=== PATIENT | female | born 1935 | race African-American/Black ===

== ENCOUNTER 2017-03-05 11:39 | Observation (INO) | payer OTHER ==
[2017-03-05 11:55] VITALS: BMI 32.5
[2017-03-05] MEDS ORDERED: ASPIRIN 81 MG CHEWABLE TABLETS PO ONE (12:08)
[2017-03-05] MEDS ORDERED: ALBUTEROL SO4 2.5/IPRATROPIUM 0.5 INH SOL 3 ML VIAL.NEB. NEB ONE ×2 (12:08→12:18)
[2017-03-05] MEDS ORDERED: ASPIRIN 81 MG CHEWABLE TABLETS ONE (12:18)
--- NOTE | 2017-03-05 12:22 | PDOC ---
History of Present Illness - History of Present Illness Initial Comments: 03/05/17 12:34 Patient is a 81 year old female with a significant past medical history of hypothyroidism, Kidney Disease, who presents to the ED with complaints of chest pain that began wednesday afternoon. Patient reports going to [facility] for chest pain that began wednesday afternoon. Patient does not rate intensity of chest pain but states it was intense . Patient reports calling PCP who referred her to the ED for further evaluation. She reports having shingles on chest that her PCP stated was no longer active and was beginning to heal. Denies SOB. Denies nausea, vomiting. Denies fever, chills. Denies contact with sick individuals, out of state travel. Denies any other symptoms. Allergies: None Social history: No smoking. Social drinking. No illicit drugs. Surgical history PMD: None <Jovany Cornejo - Last Filed: 03/05/17 12:34> - General History Source: Patient Exam Limitations: No Limitations <Monse Seay - Last Filed: 03/05/17 16:28> - General Chief Complaint: Chest Pain Stated Complaint: Chest pain Past History <Jovany Cornejo - Last Filed: 03/05/17 12:34> - Past Medical History COPD: No Disorders: Yes (KIDNEY DISEASE) HTN: Yes Thyroid Disease: Yes Other medical history: [place] - Immunization History Immunization Up to Date: Yes - Suicide/Smoking/Psychosocial Hx Smoking History: Never smoked Have you smoked in the past 12 months: No Information on smoking cessation initiated: No Hx Alcohol Use: No Drug/Substance Use Hx: No Substance Use Type: Alcohol <Monse Seay - Last Filed: 03/05/17 16:28> - Past Medical History Allergies/Adverse Reactions: Allergies Allergy/AdvReac Type Severity Reaction Status Date / Time No Known Allergies Allergy Verified 03/05/17 11:55 Home Medications: Ambulatory Orders Levothyroxine [Synthroid -] 112 mcg PO DAILY 05/07/14 Gabapentin 100 mg PO BID 11/03/15 Review of Systems - Review of Systems Able to Perform ROS?: Yes Comments:: 03/05/17 12:34 GENERAL/CONSTITUTIONAL: No fever or chills. No weakness. HEAD, EYES, EARS, NOSE AND THROAT: No change in vision. No ear pain or discharge. No sore throat. GASTROINTESTINAL: No nausea, vomiting, diarrhea or constipation. GENITOURINARY: No dysuria, frequency, or change in urination. CARDIOVASCULAR: +Chest pain. No shortness of breath. RESPIRATORY: No cough, wheezing, or hemoptysis. MUSCULOSKELETAL: No joint or muscle swelling or pain. No neck or back pain. SKIN: No rash NEUROLOGIC: No headache, vertigo, loss of consciousness, or change in strength/ sensation. ENDOCRINE: No increased thirst. No abnormal weight change. HEMATOLOGIC/LYMPHATIC: No anemia, easy bleeding, or history of blood clots. ALLERGIC/IMMUNOLOGIC: No hives or skin allergy. All Other Systems: Reviewed and Negative <Joavny Cornejo - Last Filed: 03/05/17 12:34> *Physical Exam - Vital Signs Last Vital Signs Temp Pulse Resp BP Pulse Ox 97.8 F 86 18 194/91 86 L 03/05/17 11:51 03/05/17 11:51 03/05/17 11:51 03/05/17 11:51 03/05/17 11:51 - Physical Exam Comments: 03/05/17 12:35 GENERAL: Awake, alert, and fully oriented, in no acute distress HEAD: No signs of trauma EYES: PERRLA, EOMI, sclera anicteric, conjunctiva clear ENT: Auricles normal inspection, nares patent, Moist mucosa NECK: Normal ROM, supple, no lymphadenopathy, JVD, or masses LUNGS: +Feint respiratory wheeze in right base. Breath sounds equal, clear to auscultation bilaterally. No wheezes, and no crackles HEART: Regular rate and rhythm, normal S1 and S2, no murmurs, rubs or gallops ABDOMEN: Soft, nontender, normoactive bowel sounds. No guarding, no rebound. No masses EXTREMITIES: Warm well profused. Normal range of motion, no edema. No clubbing or cyanosis. No cords, erythema, or tenderness NEUROLOGICAL: Normal speech SKIN: No active rash Warm, Dry, normal turgor, lesions noted. <Jovany Cornejo - Last Filed: 03/05/17 12:34> - Vital Signs Last Vital Signs Temp Pulse Resp BP Pulse Ox 97.8 F 86 18 194/91 86 L 03/05/17 11:51 03/05/17 11:51 03/05/17 11:51 03/05/17 11:51 03/05/17 11:51 <Monse Seay - Last Filed: 03/05/17 16:28> Heart Score/ECG Review #1 General ECG Interpretation: Sinus Rhythm, Normal Rate (57 sinus bradycardia), Normal Intervals, No acute ischemic changes Compared to previous ECG there are: Previous ECG unavail <Monse Seay - Last Filed: 03/05/17 16:28> ED Treatment Course - LABORATORY CBC & Chemistry Diagram: 03/05/17 12:12 03/05/17 12:12 - RADIOLOGY Radiology Studies Ordered: Category Date Time Status CHEST PA & LAT [RAD] Stat Radiology 03/05/17 12:09 Ordered <Monse Seay - Last Filed: 03/05/17 16:28> Medical Decision Making - Medical Decision Making 03/05/17 12:19 81-year-old female with a history of hypertension here with complaining of chest pain patient states she was recently diagnosed with shingles several weeks ago and has had persistent chest pain ever since denies any fevers chills cough denies shortness of breath today the pain woke her out of her sleep and prompt her to come to the ER. She called her primary doctor who instructed her to come to the ED. No leg swelling no other current complaints On exam awake alert female wheezing at the right base otherwise clear lungs normal effort cardiac exam is unremarkable. Abdomen soft nontender. Extremities warm well perfused no edema. Neuro alert and oriented 3 patient is very hard of hearing Differential includes ACS, post shingles neurolgia. Pneumonia, bronchospasm,. Patient states she recently had a CT chest will discuss with her primary care doctor meantime aspirin, DuoNeb, labs including troponin 03/05/17 15:43 pcp Nessa cheema [phone] pgd. 03/05/17 15:46 <Monse Seay - Last Filed: 03/05/17 16:28> *DC/Admit/Observation/Transfer - Attestations Scribe Attestion: 03/05/17 12:35 Documentation prepared by Jovany Cornejo, acting as biomedical equipment tech for Monse Seay MD, /DO. <Jovany Cornejo - Last Filed: 03/05/17 12:34> - Discharge Dispostion Admit: Yes <Monse Seay - Last Filed: 03/05/17 16:28> Diagnosis at time of Disposition: Chest pain
[2017-03-05 12:44] LABS: MCH 28.4 pg (25.7-33.7); MCHC 32.1 g/dl (32.0-36.0); MEAN CELL VOLUME 88.6 fl (80-96); MEAN PLT VOLUME 8.1 fl (7.5-11.1); PLATELET COUNT 203 K/MM3 (134-434); RDW 14.7 % (11.6-15.6)
[2017-03-05 13:20] LABS: ALBUMIN 3.5 g/dl (3.4-5.0); ANION GAP 7 (8-16); BILIRUBIN,TOTAL 0.3 mg/dL (0.2-1.0); CO2 29 mmol/L (21-32); CREATININE 1.4 mg/dL (0.55-1.02); GLUCOSE,RANDOM 92 mg/dL (74-106); SGPT/ALT 11 U/L (12-78)
[2017-03-05 13:23] LABS: ALK PHOS 45 U/L (45-117)
[2017-03-05 13:24] LABS: CPK 120 IU/L (26-192); TROPONIN I < 0.02 ng/ml (0.00-0.05)
[2017-03-05 13:28] LABS: SGOT/AST 19 U/L (15-37)
--- NOTE | 2017-03-05 18:05 | HP ---
CHIEF COMPLAINT: sternal pain and burning sensation PCP: Nessa Mcmahan HISTORY OF PRESENT ILLNESS: This is an 81 year old female who is VERY hard of hearing with PMHx of hypothyroidism, hyperlipidemia, back pain, diverticulosis, shingles (12/2016) who presented to the ED with sternal chest pain and burning sensation. The patient was seen by her primary care physician on 02/22 with the same complaints and was diagnosed with post herpatic neuralgia. She is a bad historian. She is not able to say when the pain started, if it radiates, if it is constant or intermittent. The patient denies any shortness of breath, chest pressure, palpitations, dizziness, nausea, vomiting, diarrhea, headache, lower extremity edema. ER course was notable for: (1) Temp 97.8, pulse 86, BP 194/91, resp 18, O2 100% on RA (2) Cr 1.4 (3) Trop negative (4) Chest X-ray with large heart, unfolded aorta, prominent milton. Sharp angles Recent Travel: denies PAST MEDICAL HISTORY: as above PAST SURGICAL HISTORY: denies Social History: Smoking: denies Alcohol: denies Drugs: denies Family History: Allergies No Known Allergies Allergy (Verified 03/05/17 11:55) HOME MEDICATIONS: Home Medications Medication Instructions Recorded Levothyroxine [Synthroid -] 112 mcg PO DAILY 05/07/14 Gabapentin 100 mg PO BID 11/03/15 REVIEW OF SYSTEMS CONSTITUTIONAL: Absent: fever, chills, diaphoresis, generalized weakness HEENT: Absent: rhinorrhea, nasal congestion, throat pain, CARDIOVASCULAR: Post singles sternal chest pain for which she was seen at her primary care office on 02/22. Absent: syncope, palpitations, irregular heart rate , lightheadedness, peripheral edema RESPIRATORY: Absent: cough, shortness of breath, dyspnea with exertion, orthopnea, wheezing, stridor, hemoptysis GASTROINTESTINAL:Absent: abdominal pain, abdominal distension, nausea, vomiting , diarrhea, constipation, melena, hematochezia GENITOURINARY: Absent: dysuria, frequency, urgency, hesitancy, hematuria, flank pain, genital pain MUSCULOSKELETAL: Absent: myalgia, arthralgia, joint swelling, back pain, neck pain SKIN: Absent: rash, itching, pallor ENDOCRINE:Absent: unexplained weight gain, unexplained weight loss, heat intolerance, cold intolerance NEUROLOGIC: Absent: headache, focal weakness or paresthesias, dizziness, unsteady gait, seizure, mental status changes, bladder or bowel incontinence PSYCHIATRIC: Absent: anxiety, depression, suicidal or homicidal ideation, hallucinations. PHYSICAL EXAMINATION Vital Signs - 24 hr 03/05/17 03/05/17 03/05/17 11:51 13:30 17:36 Temperature 97.8 F Pulse Rate 86 Pulse Rate [ 59 L Radial] Respiratory 18 20 Rate Blood Pressure 194/91 Blood Pressure 187/98 [Left Arm] O2 Sat by Pulse 86 L 96 100 Oximetry (%) GENERAL: Awake, alert, and fully oriented, in no acute distress. Hard of hearing HEAD: Normal with no signs of trauma. EYES: Pupils equal, round and reactive to light, extraocular movements intact, sclera anicteric, conjunctiva clear. No lid lag. EARS, NOSE, THROAT: Ears normal, nares patent, oropharynx clear without exudates. Moist mucous membranes. NECK: Normal range of motion LUNGS: Breath sounds equal, clear to auscultation bilaterally. No wheezes, and no crackles. No accessory muscle use. HEART: Regular rate and rhythm, normal S1 and S2 ABDOMEN: Soft, nontender, not distended, normoactive bowel sounds MUSCULOSKELETAL: Normal range of motion at all joints. No bony deformities or tenderness. No CVA tenderness. UPPER EXTREMITIES: 2+ pulses, warm, well-perfused. No cyanosis. No clubbing. No peripheral edema. LOWER EXTREMITIES: 2+ pulses, warm, well-perfused. No calf tenderness. No peripheral edema. NEUROLOGICAL: Cranial nerves II-XII intact. Normal speech. Gait not observed PSYCHIATRIC: Cooperative. Good eye contact. Appropriate mood and affect. SKIN: Warm, dry, normal turgor, no rashes or lesions noted, normal capillary refill. Laboratory Results - last 24 hr 03/05/17 03/05/17 03/05/17 12:12 12:12 12:12 WBC 4.0 RBC 3.88 Hgb 11.0 Hct 34.4 MCV 88.6 MCH 28.4 MCHC 32.1 RDW 14.7 Plt Count 203 MPV 8.1 Neutrophils % 54.0 Lymphocytes % 33.6 Monocytes % 9.4 Eosinophils % 2.0 Basophils % 1.0 Sodium 141 Potassium 3.8 Chloride 105 Carbon Dioxide 29 Anion Gap 7 L BUN 17 Creatinine 1.4 H D Creat Clearance w eGFR 36.00 Random Glucose 92 Calcium 9.0 Total Bilirubin 0.3 D AST 19 ALT 11 L D Alkaline Phosphatase 45 Creatine Kinase 120 Cancelled Troponin I < 0.02 Cancelled B-Natriuretic Peptide 399.88 Total Protein 7.0 Albumin 3.5 Assessment: This is an 81 year old female who is VERY hard of hearing with PMHx of hypothyroidism, hyperlipidemia, back pain, diverticulosis, shingles (12/2016 ) who presented to the ED with sternal chest pain and burning sensation. Plan: 1) Atypical chest pain - ACS vs. GERD vs. post herpatic neuralgia s/p shingles 12/2016 - F/u repeat trops, x1 negative - Enlarged heart on chest x-ray, BNP wnl - F/u ECHO - F/u TSH - F/u lipid panel - F/u HgbA1c - Zantac 150mg bid for GERD - Post herpatic neuralgia diagnosed 02/22/17 by pcp. Ideally would like to start on tricyclic antidepressant, however with the patients advanced age would be concerned for anticolinergic effects. Will start Gabapentin 300mg today, then bid tomorrow. Assess for improvement in symptoms and increase as needed 2) Hypertension - Above goal - Start Norvasc 5mg po daily 3) Hypothyroidism - Continue Synthroid 4) ONESIMO on CKD vs. CKD - No baseline Cr - Continue to monitor - If worsening consider renal ultrasound and urine electrolytes 4) F/E/N: - Sodium controlled diet - Monitor electrolytes 5) Prophylaxis: - OOB ambulating - SCDs bilaterally 6) Dispo: - Once condition improves CODE STATUS: FULL CODE Visit type - Emergency Visit Emergency Visit: Yes ED Registration Date: 03/05/17 Care time: The patient presented to the Emergency Department on the above date and was hospitalized for further evaluation of their emergent condition. - New Patient This patient is new to me today: Yes Date on this admission: 03/05/17 - Critical Care Critical Care patient: No
[2017-03-05] MEDS ORDERED: RANITIDINE HCL 150 MG TABLET (FP) ONE (18:24)
[2017-03-05] MEDS ORDERED: amLODIPine BESYLATE 5 MG TABLET (FP) ONE (18:24)
[2017-03-05] MEDS ORDERED: GABAPENTIN 300 MG CAPSULE (FP) PO ONE ×2 (18:25→21:45)
[2017-03-05] MEDS: amLODIPine BESYLATE 5 MG TABLET (FP) PO SCH (18:35)
[2017-03-05 18:37] LABS: CPK 95 IU/L (26-192); TROPONIN I < 0.02 ng/ml (0.00-0.05)
[2017-03-05] MEDS: RANITIDINE HCL 150 MG TABLET (FP) PO SCH ×2 (18:40→21:45)
[2017-03-05] MEDS ORDERED: GABAPENTIN 300 MG CAPSULE (FP) PO SCH (22:00)
[2017-03-06 01:17] LABS: CPK 83 IU/L (26-192); TROPONIN I < 0.02 ng/ml (0.00-0.05)
[2017-03-06 06:34] LABS: MCH 29.3 pg (25.7-33.7); MCHC 32.7 g/dl (32.0-36.0); MEAN CELL VOLUME 89.6 fl (80-96); MEAN PLT VOLUME 8.5 fl (7.5-11.1); PLATELET COUNT 199 K/MM3 (134-434); RDW 15.2 % (11.6-15.6); WHITE BLOOD COUNT 3.6 K/mm3 (4.0-10.0)
[2017-03-06 07:08] LABS: CHOLESTEROL 220 mg/dL (50-200)
[2017-03-06 07:09] LABS: ALBUMIN 3.2 g/dl (3.4-5.0); ANION GAP 9 (8-16); BILIRUBIN,TOTAL 0.5 mg/dL (0.2-1.0); CALCIUM 8.5 mg/dL (8.5-10.1); CO2 26 mmol/L (21-32); CREATININE 1.3 mg/dL (0.55-1.02); GLUCOSE,RANDOM 79 mg/dL (74-106); MAGNESIUM 1.9 mg/dL (1.8-2.4); PHOSPHOROUS 3.2 mg/dL (2.5-4.9); SGOT/AST 15 U/L (15-37); SGPT/ALT 10 U/L (12-78); TOT PROT 6.4 g/dl (6.4-8.2)
[2017-03-06 07:19] LABS: ALK PHOS 44 U/L (45-117)
[2017-03-06] MEDS: amLODIPine BESYLATE 5 MG TABLET (FP) PO SCH (09:22)
[2017-03-06] MEDS: RANITIDINE HCL 150 MG TABLET (FP) PO SCH (09:22)
[2017-03-06] MEDS ORDERED: LEVOTHYROXINE NA 100 MCG TABLET (FP) PO SCH (10:00)
[2017-03-06] MEDS ORDERED: OXYBUTYNIN CHLORIDE 5 MG TABLET PO SCH (10:00)
[2017-03-06] MEDS ORDERED: ASPIRIN COATED 81 MG TABLET.EC PO SCH (10:00)
[2017-03-06] MEDS ORDERED: GABAPENTIN 300 MG CAPSULE (FP) PO SCH (10:00)
[2017-03-06 11:31] VITALS: BP 172/69; PULSE 58; TEMP 98
--- NOTE | 2017-03-06 12:45 | DS ---
Physical Exam: SUBJECTIVE: Patient seen and examined OBJECTIVE: Vital Signs Period Temp Pulse Resp BP Sys/Munoz Pulse Ox Last 24 Hr 97.8 F-98.6 F 55-63 18-22 153-187/68-98 96-100 PHYSICAL EXAM GENERAL: The patient is awake, alert, and fully oriented, in no acute distress. HEAD: Normal with no signs of trauma. EYES: PERRL, extraocular movements intact, sclera anicteric, conjunctiva clear. ENT: Ears normal, nares patent, oropharynx clear without exudates, moist mucous membranes. NECK: Trachea midline, full range of motion, supple. LUNGS: Breath sounds equal, clear to auscultation bilaterally, no wheezes, no crackles, no accessory muscle use. HEART: Regular rate and rhythm, S1, S2 without murmur, rub or gallop. ABDOMEN: Soft, nontender, nondistended, normoactive bowel sounds, no guarding, no rebound, no hepatosplenomegaly, no masses. EXTREMITIES: 2+ pulses, warm, well-perfused, no edema. NEUROLOGICAL: Cranial nerves II through XII grossly intact. Normal speech, gait not observed. PSYCH: Normal mood, normal affect. SKIN: Warm, dry, normal turgor, no rashes or lesions noted. LABS Laboratory Results - last 24 hr 03/05/17 03/05/17 03/05/17 12:12 12:12 12:12 WBC 4.0 RBC 3.88 Hgb 11.0 Hct 34.4 MCV 88.6 MCH 28.4 MCHC 32.1 RDW 14.7 Plt Count 203 MPV 8.1 Neutrophils % 54.0 Lymphocytes % 33.6 Monocytes % 9.4 Eosinophils % 2.0 Basophils % 1.0 Sodium 141 Potassium 3.8 Chloride 105 Carbon Dioxide 29 Anion Gap 7 L BUN 17 Creatinine 1.4 H D Creat Clearance w eGFR 36.00 Random Glucose 92 Hemoglobin A1c % Calcium 9.0 Phosphorus Magnesium Total Bilirubin 0.3 D AST 19 ALT 11 L D Alkaline Phosphatase 45 Creatine Kinase 120 Cancelled Troponin I < 0.02 Cancelled B-Natriuretic Peptide 399.88 Total Protein 7.0 Albumin 3.5 Triglycerides Cholesterol Total LDL Cholesterol HDL Cholesterol TSH 03/05/17 03/06/17 03/06/17 18:00 00:00 05:00 WBC 3.6 L RBC 3.68 Hgb 10.8 Hct 33.0 MCV 89.6 MCH 29.3 MCHC 32.7 RDW 15.2 Plt Count 199 MPV 8.5 Neutrophils % Lymphocytes % Monocytes % Eosinophils % Basophils % Sodium Potassium Chloride Carbon Dioxide Anion Gap BUN Creatinine Creat Clearance w eGFR Random Glucose Hemoglobin A1c % Calcium Phosphorus Magnesium Total Bilirubin AST ALT Alkaline Phosphatase Creatine Kinase 95 83 Troponin I < 0.02 < 0.02 B-Natriuretic Peptide Total Protein Albumin Triglycerides Cholesterol Total LDL Cholesterol HDL Cholesterol TSH 03/06/17 03/06/17 03/06/17 05:00 05:00 05:00 WBC RBC Hgb Hct MCV MCH MCHC RDW Plt Count MPV Neutrophils % Lymphocytes % Monocytes % Eosinophils % Basophils % Sodium 141 Potassium 3.9 Chloride 106 Carbon Dioxide 26 Anion Gap 9 BUN 16 Creatinine 1.3 H Creat Clearance w eGFR 39.21 Random Glucose 79 Hemoglobin A1c % 5.0 Calcium 8.5 Phosphorus 3.2 Magnesium 1.9 Total Bilirubin 0.5 D AST 15 D ALT 10 L Alkaline Phosphatase 44 L Creatine Kinase Troponin I B-Natriuretic Peptide Total Protein 6.4 Albumin 3.2 L Triglycerides 60 Cholesterol 220 H Total LDL Cholesterol 135 H HDL Cholesterol 74 H TSH 24.90 H HOSPITAL COURSE: Date of Admission:03/05/17 Date of Discharge: 03/06/17 Minutes to complete discharge: 35 Discharge Summary Reason For Visit: CHEST PAIN Current Active Problems Chest pain (Acute) Condition: Improved - Instructions Diet, Activity, Other Instructions: It is important you see Dr. Bang for your scheduled appoinment on Wednesday. You were seen at [facility] for an exacerbation of your post-herpetic neuralgia. The following medication changes were made: 1. Your dose of gabapentin was increased from 100 mg twice daily to 300mg twice daily; a new prescription has been sent to your pharmacy; 2. Your blood pressure was elevated during your hospital stay (163-->194/78-->91 ); you were started on amlodipine 5mg daily; a new prescription has been sent to your pharmacy; 3. Your TSH level was high @ 24.9; your dose of levothyroxine was increased to 112mcg daily; a new prescription has been sent to your pharmacy. You should discuss these medication changes with Dr. Bang. Return to the emergency department for any new or worsening symptoms. Referrals: Nessa Waters [Non Staff, Medical] - Disposition: HOME - Home Medications Comprehensive Discharge Medication List: Ambulatory Orders Amlodipine Besylate [Norvasc -] 5 mg PO DAILY #30 tablet 03/06/17 Gabapentin [Neurontin -] 300 mg PO BID #60 capsule 03/06/17 Levothyroxine [Synthroid -] 112 mcg PO DAILY #30 tablet 03/06/17 This patient is new to me today: Yes Date on this admission: 03/06/17 Emergency Visit: Yes ED Registration Date: 03/05/17 Care time: The patient presented to the Emergency Department on the above date and was hospitalized for further evaluation of their emergent condition. Critical Care patient: No
== END 2017-03-06 15:38 | disposition home or self-care (01) ==
LOC: JER 11:39 → JERBED 16:28 → J4W 19:10
PROVIDERS: ADMIT Internal Medicine; ATTEND Nurse Practitioner Acute Care
PROC: 3E0F7GC Introduction of Other Therapeutic Substance into Respiratory Tract, Via Natural or Artificial Opening (ICD-10-PCS; principal; 2017-03-05)
DX: R07.89 Other chest pain (principal); E03.9 Hypothyroidism, unspecified; E78.5 Hyperlipidemia, unspecified; N17.9 Acute kidney failure, unspecified
CPT/HCPCS: 36415; 71020-TC; 80053; 80061; 82550; 83036; 83721; 83735; 83880; 84100; 84443; 84484; 85025; 85027; 94640; 99284-25; G0378

== ENCOUNTER 2017-05-31 21:19 | Emergency (ER) | payer OTHER ==
--- NOTE | 2017-05-31 21:53 | PDOC ---
Rapid Medical Evaluation Time Seen by Provider: 05/31/17 21:46 Medical Evaluation: Allergies Allergy/AdvReac Type Severity Reaction Status Date / Time No Known Allergies Allergy Verified 03/05/17 11:55 05/31/17 21:46 The patient presents with a chief complaint of: " Not feeling well" Cough and fever. Was seen at urgent care on Wednesday chest xray showed pneumonia. Was started on antibiotics. I have performed a brief in-person evaluation of this patient. Pertinent physical exam findings: Crackles bilaterally more on the left then the right. RRR I have ordered the following: Chest Xray The patient will proceed to the ED for further evaluation. Discharge Disposition - Diagnosis Pneumonia - Referrals - Patient Instructions - Post Discharge Activity
[2017-05-31 21:56] VITALS: BP 160/72; PULSE 64; TEMP 98.3; BMI 32.5
[2017-05-31] MEDS ORDERED: SODIUM CHLORIDE 1,000 ML IV STA (22:00)
--- NOTE | 2017-05-31 22:45 | PDOC ---
History of Present Illness - General History Source: Patient Exam Limitations: No Limitations - History of Present Illness Initial Comments: 06/01/17 02:16 The patient is an 82 year old female with history of hypertension, hyperthyroidism, who presents to the ED complaining of approximately 1 week of cough. She states she was seen at Urgent Care two days ago, where she obtained a chest x-ray that demonstrated pneumonia. She was prescribed an antibiotic, which she can not recall the name of. She states she took two days of a 7 day course, but is concerned that her cough has not yet resolved, prompting her ED visit today. Cough is productive with yellowish sputum. She also reports associated intermittent chills, no fever. No nausea, vomiting, or diarrhea. No wheezing or hemoptysis. Denies CP/SOB <Natacha Martins - Last Filed: 06/01/17 02:16> <Jennifer Walton - Last Filed: 06/01/17 02:37> - General Chief Complaint: Shortness of Breath Stated Complaint: FEVER Time Seen by Provider: 05/31/17 21:46 Past History <Natacha Martins - Last Filed: 06/01/17 02:16> - Past Medical History Anemia: No Asthma: No Cancer: No Cardiac Disorders: No CVA: No COPD: No CHF: No Dementia: No Diabetes: No GI Disorders: No Disorders: Yes (KIDNEY DISEASE) HTN: Yes Hypercholesterolemia: Yes Liver Disease: No Seizures: No Thyroid Disease: Yes - Surgical History Abdominal Surgery: No Appendectomy: No Cardiac Surgery: No Cholecystectomy: No Lung Surgery: No Neurologic Surgery: No Orthopedic Surgery: Yes (BILAT ROTATOR SX; (R) WRIST SX) - Immunization History Immunization Up to Date: Yes - Suicide/Smoking/Psychosocial Hx Smoking History: Never smoked Have you smoked in the past 12 months: No Information on smoking cessation initiated: No Hx Alcohol Use: No Drug/Substance Use Hx: No Substance Use Type: Alcohol Hx Substance Use Treatment: No <Jennifer Walton - Last Filed: 06/01/17 02:37> - Past Medical History Allergies/Adverse Reactions: Allergies Allergy/AdvReac Type Severity Reaction Status Date / Time No Known Allergies Allergy Verified 05/31/17 21:56 Home Medications: Ambulatory Orders Amlodipine Besylate [Norvasc -] 5 mg PO DAILY #30 tablet 03/06/17 Gabapentin [Neurontin -] 300 mg PO BID #60 capsule 03/06/17 Levothyroxine [Synthroid -] 112 mcg PO DAILY #30 tablet 03/06/17 Review of Systems - Review of Systems Able to Perform ROS?: Yes Comments:: 06/01/17 02:17 GENERAL/CONSTITUTIONAL: +Chills, no fever. No weakness. HEAD, EYES, EARS, NOSE AND THROAT: No change in vision. No ear pain or discharge. No sore throat. GASTROINTESTINAL: No nausea, vomiting, diarrhea or constipation. GENITOURINARY: No dysuria, frequency, or change in urination. CARDIOVASCULAR: No chest pain or shortness of breath. RESPIRATORY: +Productive cough with yellow sputum. No wheezing, or hemoptysis. MUSCULOSKELETAL: No joint or muscle swelling or pain. No neck or back pain. SKIN: No rash NEUROLOGIC: No headache, vertigo, loss of consciousness, or change in strength/ sensation. ENDOCRINE: No increased thirst. No abnormal weight change. HEMATOLOGIC/LYMPHATIC: No anemia, easy bleeding, or history of blood clots. ALLERGIC/IMMUNOLOGIC: No hives or skin allergy. <Natacha Martins - Last Filed: 06/01/17 02:16> *Physical Exam - Vital Signs Last Vital Signs Temp Pulse Resp BP Pulse Ox 98.3 F 64 20 160/72 100 05/31/17 21:48 05/31/17 21:48 05/31/17 21:48 05/31/17 21:48 05/31/17 22:00 - Physical Exam Comments: 06/01/17 02:17 GENERAL: Awake, alert, and fully oriented, in no acute distress HEAD: No signs of trauma EYES: PERRLA, EOMI, sclera anicteric, conjunctiva clear ENT: Auricles normal inspection, hearing grossly normal, nares patent, oropharynx clear without exudates. Moist mucosa NECK: Normal ROM, supple, no lymphadenopathy, JVD, or masses LUNGS: CTAB, no wheezes, rhonchi or crackles HEART: Regular rate and rhythm, normal S1 and S2. +2/6 systolic ejection murmur loudest at the right sternal border. ABDOMEN: Soft, nontender, normoactive bowel sounds. No guarding, no rebound. No masses EXTREMITIES: Normal range of motion, no edema. No clubbing or cyanosis. No cords, erythema, or tenderness BACK: No midline spinal tenderness in cervical/thoracic/lumbar region NEUROLOGICAL: Normal speech, cranial nerves intact, negative pronator drift, 5/ 5 strength in all 4 extremities, normal sensation to light touch in all 4 extremities, normal cerebellar exam, normal reflexes and tone. Cane assisted ambulation. SKIN: Warm, Dry, normal turgor, no rashes or lesions noted. <Natacha Martins - Last Filed: 06/01/17 02:16> - Vital Signs Last Vital Signs Temp Pulse Resp BP Pulse Ox 98.3 F 64 20 160/72 100 05/31/17 21:48 05/31/17 21:48 05/31/17 21:48 05/31/17 21:48 05/31/17 22:00 <Jennifer Walton - Last Filed: 06/01/17 02:37> ED Treatment Course - LABORATORY CBC & Chemistry Diagram: 05/31/17 23:00 05/31/17 23:00 - ADDITIONAL ORDERS Additional order review: Laboratory Results 06/01/17 05/31/17 05/31/17 00:20 23:31 23:00 PT with INR INR PTT (Actin FS) Sodium Potassium Chloride Carbon Dioxide Anion Gap BUN Creatinine Creat Clearance w eGFR Random Glucose Lactic Acid 0.7 Calcium Total Bilirubin AST ALT Alkaline Phosphatase Creatine Kinase Creatine Kinase Index CK-MB (CK-2) Troponin I Total Protein Albumin Urine Color Colorless Urine Appearance Clear Urine pH 7.0 Ur Specific [place] 1.003 Urine Protein Negative Urine Glucose (UA) Negative Urine Ketones Negative Urine Blood Negative Urine Nitrite Negative Urine Bilirubin Negative Urine Urobilinogen Negative Ur Leukocyte Esterase Negative Blood Type Cancelled Antibody Screen Cancelled 05/31/17 05/31/17 05/31/17 23:00 23:00 23:00 PT with INR Cancelled INR Cancelled PTT (Actin FS) Cancelled Sodium 137 Potassium 4.9 Chloride 103 Carbon Dioxide 26 Anion Gap 8 BUN 19 H Creatinine 1.2 H Creat Clearance w eGFR 42.90 Random Glucose 85 Lactic Acid 0.5 Calcium 8.5 Total Bilirubin 0.4 AST 44 H ALT 17 Alkaline Phosphatase 44 L Creatine Kinase 154 Creatine Kinase Index 0.7 CK-MB (CK-2) 1.112 Troponin I < 0.02 Total Protein 7.5 Albumin 3.3 L Urine Color Urine Appearance Urine pH Ur Specific [place] Urine Protein Urine Glucose (UA) Urine Ketones Urine Blood Urine Nitrite Urine Bilirubin Urine Urobilinogen Ur Leukocyte Esterase Blood Type Antibody Screen 05/31/17 05/31/17 23:00 00:20 RBC Cancelled 3.82 MCV Cancelled 86.7 MCHC Cancelled 32.3 RDW Cancelled 14.0 MPV Cancelled 8.7 Neutrophils % Cancelled 33.0 L D Lymphocytes % Cancelled 51.5 H D Monocytes % Cancelled 12.9 H Eosinophils % Cancelled 2.0 Basophils % Cancelled 0.6 - Medications Given in the ED: ED Medications Discontinued Medications Generic Name Dose Route Start Last Admin Trade Name Freq PRN Reason Stop Dose Admin Sodium Chloride 1,000 mls @ 1,000 mls/hr 05/31/17 22:00 05/31/17 23:02 Normal Saline - IV 05/31/17 22:59 1,000 mls/hr ASDIR STA Administration <Natacha Martins - Last Filed: 06/01/17 02:16> - LABORATORY CBC & Chemistry Diagram: 05/31/17 23:00 05/31/17 23:00 <Jennifer Walton - Last Filed: 06/01/17 02:37> Medical Decision Making - Medical Decision Making 06/01/17 00:28 82-year-old female presents to emergency department with concern for pneumonia due to persistent cough. Initial vitals reported incorrectly with hypoxia to 86% . On the monitor, soon after arrival, the patient's O2 sat was 99% with good waveform on my evaluation. Patient is not in any distress, and exam is normal other than a 2/6 systolic murmur. Lungs are clear. We'll check labs and x-ray to rule out pneumonia. Patient likely has bronchitis, if labs and x-ray are normal, patient can likely be discharged to follow-up with her primary care doctor. 06/01/17 02:33 Labs and x-ray unremarkable. Patient feels well, is clinically stable and has stable vitals. Current O2 sat is 100% on room air. Pt is reassured she does not have PNA and requests discharge home. I discussed the physical exam findings, ancillary test results and final diagnoses with the patient. I answered all of the patient's questions. The patient was satisfied with the care received and felt comfortable with the discharge plan and treatment plan. The patient will call their primary care physician within 24 hours to arrange follow-up and will return to the Emergency Department with any new, persistent or worsening symptoms. <Jennifer Walton - Last Filed: 06/01/17 02:37> *DC/Admit/Observation/Transfer - Attestations Scribe Attestion: 06/01/17 02:17 Documentation prepared by Natacha Martins, acting as clinical medical transcriptionist for Jennifer Walton MD. <Natacha Martins - Last Filed: 06/01/17 02:16> - Discharge Dispostion Admit: No - Attestations Physician Attestion: 06/01/17 02:37 I, Dr. Jennifer Walton MD, attest that this document has been prepared under my direction and personally reviewed by me in its entirety. I further attest, that it accurately reflects all work, treatment, procedures and medical decision -making performed by me. <Jennifer Walton - Last Filed: 06/01/17 02:37> Diagnosis at time of Disposition: Bronchitis - Discharge Dispostion Disposition: HOME Condition at time of disposition: Stable - Patient Instructions Printed Discharge Instructions: DI for Acute Bronchitis Additional Instructions: Follow-up with her primary care doctor within 1-2 days. Return to the emergency department if you have any new, worsening or concerning symptoms.
[2017-05-31 23:30] LABS: ALBUMIN 3.3 g/dl (3.4-5.0); ANION GAP 8 (8-16); BLOOD UREA NITROGEN 19 mg/dL (7-18); CALCIUM 8.5 mg/dL (8.5-10.1); CHLORIDE 103 mmol/L (98-107); CO2 26 mmol/L (21-32); CREATININE 1.2 mg/dL (0.55-1.02); GLUCOSE,RANDOM 85 mg/dL (74-106); SGPT/ALT 17 U/L (12-78); SODIUM 137 mmol/L (136-145)
[2017-05-31 23:31] LABS: BILIRUBIN,TOTAL 0.4 mg/dL (0.2-1.0); TOT PROT 7.5 g/dl (6.4-8.2)
[2017-05-31 23:34] LABS: ALK PHOS 44 U/L (45-117)
[2017-05-31 23:36] LABS: POTASSIUM 4.9 mmol/L (3.5-5.1); SGOT/AST 44 U/L (15-37)
[2017-06-01 00:26] LABS: HEMOGLOBIN 10.7 GM/dL (10.7-15.3); LYMPH % 51.5 % (8-40); MCHC 32.3 g/dl (32.0-36.0); RBC 3.82 M/mm3 (3.60-5.2); WHITE BLOOD COUNT 2.8 K/mm3 (4.0-10.0)
[2017-06-01 00:28] LABS: BASO % 0.6 % (0-2.0); HEMATOCRIT 33.1 % (32.4-45.2); MEAN CELL VOLUME 86.7 fl (80-96); MEAN PLT VOLUME 8.7 fl (7.5-11.1); MONO % 12.9 % (3.8-10.2); PLATELET COUNT 159 K/MM3 (134-434)
[2017-06-01 00:54] LABS: URINE APPEARANCE CLEAR; URINE BILIRUBIN NEGATIVE (NEGATIVE); URINE BLOOD NEGATIVE (NEGATIVE); URINE COLOR COLORLESS; URINE GLUCOSE (UA) NEGATIVE (NEGATIVE); URINE KETONE NEGATIVE (NEGATIVE); URINE LEUK ESTERASE NEGATIVE (NEGATIVE); URINE NITRITE NEGATIVE (NEGATIVE); URINE PROTEIN NEGATIVE (NEGATIVE); URINE UROBILINOGEN NEGATIVE mg/dL (0.2-1.0)
--- NOTE | 2017-06-01 16:42 | EKG ---
Test Reason : Blood Pressure : / mmHG Vent. Rate : 059 BPM Atrial Rate : 059 BPM P-R Int : 168 ms QRS Dur : 088 ms QT Int : 412 ms P-R-T Axes : 057 030 042 degrees QTc Int : 407 ms SINUS BRADYCARDIA OTHERWISE NORMAL ECG WHEN COMPARED WITH ECG OF 05-MAR-2017 11:58, NO SIGNIFICANT CHANGE WAS FOUND Confirmed by MD Morris, Hermes ([id number]) on 06/01/2017 4:41:37 PM Referred By: Confirmed By:Hermes Caceres MD
== END 2017-06-01 03:21 | disposition home or self-care (01) ==
LOC: JER 21:19
PROC: 3E0337Z Introduction of Electrolytic and Water Balance Substance into Peripheral Vein, Percutaneous Approach (ICD-10-PCS; principal; 2017-05-31)
DX: J20.9 Acute bronchitis, unspecified (principal); I10 Essential (primary) hypertension; E05.90 Thyrotoxicosis, unspecified without thyrotoxic crisis or storm
CPT/HCPCS: 36415; 71046-TC-FY; 80053; 81003; 82550; 82553; 83605; 84484; 85025; 87040; 93005; 93010; 96360; 99283-25

== ENCOUNTER 2017-10-07 14:25 | Emergency (ER) | payer OTHER ==
[2017-10-07 14:54] VITALS: BMI 28.8
--- NOTE | 2017-10-07 16:15 | PDOC ---
History of Present Illness - General History Source: Patient Exam Limitations: No Limitations - History of Present Illness Initial Comments: 10/07/17 17:35 The patient is a 82 year old female with past medical history of HTN, kidney disease and hyperthyroidism presents to the emergency department complaining of heart pounding. The patient reports an onset of heart pounding every 15 minutes associated with shortness of breath, bilateral hand swelling (resolved) , and chest tenderness. The patient reports getting blood work, physical and EKG done 09/20/2017, doesnt recall the results. The patient states s/p leg surgery, the patients been experiencing urinary frequency w/ dysuria and bilateral lower extremities swelling. The patient reports he has an appointment with Dr. Penny next month. Denies fever, chills, cough or a headache. Denies chest pain. Denies nausea or vomiting. Denies dyspnea on exertion. Denies diarrhea or constipation. Denies hematuria or frequency. Denies vertigo or dizziness. Allergies: NKDA Social history: None reported Surgical history: BILAT ROTATOR SX; (R) WRIST SX PCP: Nessa Alcocer <Yadira Schreiber - Last Filed: 10/07/17 17:35> <Cici Pascual - Last Filed: 10/07/17 18:59> - General Chief Complaint: Chest Pain Stated Complaint: CHEST PAIN Time Seen by Provider: 10/07/17 15:30 Past History <Yadira Schreiber - Last Filed: 10/07/17 17:35> - Past Medical History Anemia: No Asthma: No Cancer: No Cardiac Disorders: No CVA: No COPD: No CHF: No Dementia: No Diabetes: No GI Disorders: No Disorders: Yes (KIDNEY DISEASE) HTN: Yes Hypercholesterolemia: Yes Liver Disease: No Seizures: No Thyroid Disease: Yes - Surgical History Abdominal Surgery: No Appendectomy: No Cardiac Surgery: No Cholecystectomy: No Lung Surgery: No Neurologic Surgery: No Orthopedic Surgery: Yes (BILAT ROTATOR SX; (R) WRIST SX) - Immunization History Immunization Up to Date: Yes - Suicide/Smoking/Psychosocial Hx Smoking History: Never smoked Have you smoked in the past 12 months: No Hx Alcohol Use: No Drug/Substance Use Hx: No Substance Use Type: Alcohol Hx Substance Use Treatment: No <Cici Pascual - Last Filed: 10/07/17 18:59> - Past Medical History Allergies/Adverse Reactions: Allergies Allergy/AdvReac Type Severity Reaction Status Date / Time No Known Allergies Allergy Verified 05/31/17 21:56 Home Medications: Ambulatory Orders Amlodipine Besylate [Norvasc -] 5 mg PO DAILY #30 tablet 03/06/17 Gabapentin [Neurontin -] 300 mg PO BID #60 capsule 03/06/17 Levothyroxine [Synthroid -] 112 mcg PO DAILY #30 tablet 03/06/17 Review of Systems - Review of Systems Able to Perform ROS?: Yes Comments:: 10/07/17 17:35 GENERAL/CONSTITUTIONAL: No fever or chills. No weakness. HEAD, EYES, EARS, NOSE AND THROAT: No change in vision. No ear pain or discharge. No sore throat. CARDIOVASCULAR:(+) Heart pounding/ chest tenderness No chest pain. . RESPIRATORY: (+) SOB. No cough, wheezing, or hemoptysis. GASTROINTESTINAL: No nausea, vomiting, diarrhea or constipation. GENITOURINARY: No dysuria, frequency, or change in urination. MUSCULOSKELETAL: (+) bila hand swelling. No joint or muscle swelling or pain. No neck or back pain. SKIN: No rash NEUROLOGIC: No headache, vertigo, loss of consciousness, or change in strength/ sensation. ENDOCRINE: No increased thirst. No abnormal weight change. HEMATOLOGIC/LYMPHATIC: No anemia, easy bleeding, or history of blood clots. ALLERGIC/IMMUNOLOGIC: No hives or skin allergy. <Yadira Schreiber - Last Filed: 10/07/17 17:35> *Physical Exam - Vital Signs Last Vital Signs Temp Pulse Resp BP Pulse Ox 98.8 F 58 L 18 177/77 98 10/07/17 14:25 10/07/17 14:25 10/07/17 14:25 10/07/17 14:25 10/07/17 14:25 - Physical Exam Comments: 10/07/17 17:36 GENERAL: Awake, alert, and fully oriented, in no acute distress HEAD: No signs of trauma EYES: PERRLA, EOMI, sclera anicteric, conjunctiva clear ENT: Auricles normal inspection, hearing grossly normal, nares patent, oropharynx clear without exudates. Moist mucosa NECK: Normal ROM, supple, no lymphadenopathy, JVD, or masses LUNGS: Breath sounds equal, clear to auscultation bilaterally. No wheezes, and no crackles HEART: Regular rate and rhythm, normal S1 and S2, no murmurs, rubs or gallops ABDOMEN: Soft, nontender, normoactive bowel sounds. No guarding, no rebound. No masses EXTREMITIES: (+) Trace edema to the calf bilaterally. Normal range of motion. No clubbing or cyanosis. No cords, erythema, or tenderness NEUROLOGICAL: Cranial nerves II through XII grossly intact. Normal speech, normal gait SKIN: Warm, Dry, normal turgor, no rashes or lesions noted. <Yadira Schreiber - Last Filed: 10/07/17 17:35> - Vital Signs Last Vital Signs Temp Pulse Resp BP Pulse Ox 98.8 F 58 L 18 177/77 98 10/07/17 14:25 10/07/17 14:25 10/07/17 14:25 10/07/17 14:25 10/07/17 14:25 <Cici Pascual - Last Filed: 10/07/17 18:59> ED Treatment Course - LABORATORY CBC & Chemistry Diagram: 10/07/17 16:45 10/07/17 16:45 - ADDITIONAL ORDERS Additional order review: Laboratory Results 10/07/17 16:45 Sodium 141 Potassium 4.3 Chloride 108 H Carbon Dioxide 24 Anion Gap 9 BUN 20 H Creatinine 1.2 H Creat Clearance w eGFR 42.90 Random Glucose 78 Calcium 8.6 Total Bilirubin 0.3 D AST 20 ALT 15 Alkaline Phosphatase 49 Creatine Kinase 93 Troponin I < 0.02 Total Protein 6.9 Albumin 3.5 10/07/17 16:45 RBC 3.99 MCV 86.3 MCHC 32.1 RDW 14.9 MPV 7.8 D Neutrophils % 45.1 D Lymphocytes % 39.2 D Monocytes % 11.4 H Eosinophils % 2.9 Basophils % 1.4 <Yadira Schreiber - Last Filed: 10/07/17 17:35> - LABORATORY CBC & Chemistry Diagram: 10/07/17 16:45 10/07/17 16:45 <Cici Pascual - Last Filed: 10/07/17 18:59> Medical Decision Making - Medical Decision Making 10/07/17 18:42 Pt presents to the ED complaining of palpitations that have been intermittent for several days. Also complains of shortness of breath that is now resolved. Differential included arrythmia, hyperthyroidism, less likely CHF exacerbation. Labs and EKG are within normal limits. CXR is normal. Will discuss with patient's PMD--likely discharge home with referral to PMD for cardiology follow up and holter monitor. <Cici Pascual - Last Filed: 10/07/17 18:59> *DC/Admit/Observation/Transfer - Attestations Scribe Attestion: 10/07/17 17:36 Documentation prepared by Yadria Schreiber, acting as resident medical officer for Cici Pascual MD. <Yadira Schreiber - Last Filed: 10/07/17 17:35> - Discharge Dispostion Decision to Admit order: No <Cici Pascual - Last Filed: 10/07/17 18:59> Diagnosis at time of Disposition: Palpitations - Discharge Dispostion Disposition: HOME Condition at time of disposition: Good - Referrals Referrals: Nessa Waters [Primary Care Provider] - - Patient Instructions Printed Discharge Instructions: DI for Palpitations Additional Instructions: Make sure that you call your doctor for follow up. I am not sure why you are having palpitations, but you do not seem to be having a cardiac emergency today. However, you must return to the ED for new or worsening symptoms, especially chest pain, shortness of breath, passing out. You MUST follow up with your doctor, because you likely need additional testing such as a Holter monitor. - Post Discharge Activity
[2017-10-07 16:53] LABS: BASO % 1.4 % (0-2.0); EOS % 2.9 % (0-4.5); HEMATOCRIT 34.4 % (32.4-45.2); HEMOGLOBIN 11.1 GM/dL (10.7-15.3); LYMPH % 39.2 % (8-40); MCH 27.7 pg (25.7-33.7); MCHC 32.1 g/dl (32.0-36.0); MEAN CELL VOLUME 86.3 fl (80-96); MEAN PLT VOLUME 7.8 fl (7.5-11.1); MONO % 11.4 % (3.8-10.2); NEUT % 45.1 % (42.8-82.8); PLATELET COUNT 207 K/MM3 (134-434); RBC 3.99 M/mm3 (3.60-5.2); RDW 14.9 % (11.6-15.6); WHITE BLOOD COUNT 3.6 K/mm3 (4.0-10.0)
[2017-10-07 17:30] LABS: ALBUMIN 3.5 g/dl (3.4-5.0); ANION GAP 9 (8-16); BLOOD UREA NITROGEN 20 mg/dL (7-18); CALCIUM 8.6 mg/dL (8.5-10.1); CHLORIDE 108 mmol/L (98-107); CO2 24 mmol/L (21-32); CREATININE 1.2 mg/dL (0.55-1.02); GLUCOSE,RANDOM 78 mg/dL (74-106); POTASSIUM 4.3 mmol/L (3.5-5.1); SGOT/AST 20 U/L (15-37); SGPT/ALT 15 U/L (12-78); SODIUM 141 mmol/L (136-145)
[2017-10-07 17:32] LABS: ALK PHOS 49 U/L (45-117); BILIRUBIN,TOTAL 0.3 mg/dL (0.2-1.0); TOT PROT 6.9 g/dl (6.4-8.2)
[2017-10-07 18:51] VITALS: BP 139/88; PULSE 97; TEMP 98
--- NOTE | 2017-10-08 08:52 | EKG ---
Test Reason : Blood Pressure : / mmHG Vent. Rate : 057 BPM Atrial Rate : 057 BPM P-R Int : 186 ms QRS Dur : 088 ms QT Int : 436 ms P-R-T Axes : 042 010 041 degrees QTc Int : 424 ms SINUS BRADYCARDIA WHEN COMPARED WITH ECG OF 07-OCT-2017 14:49, NONSPECIFIC T WAVE ABNORMALITY NOW EVIDENT IN ANTERIOR LEADS Confirmed by MAKAYLA CHAVEZ MD ([id number]) on 10/08/2017 8:52:19 AM Referred By: Confirmed By:MAKAYLA CHAVEZ MD
== END 2017-10-07 19:30 | disposition home or self-care (01) ==
LOC: JER 14:25
DX: R00.2 Palpitations (principal); I12.9 Hypertensive chronic kidney disease with stage 1 through stage 4 chronic kidney disease, or unspecified chronic kidney disease; N18.9 Chronic kidney disease, unspecified; E78.00 Pure hypercholesterolemia, unspecified
CPT/HCPCS: 36415; 71045-TC-FY; 80053; 82550; 84443; 84484; 85025; 93005; 93010; 99282-25

== ENCOUNTER 2018-07-09 17:52 | Emergency (ER) | payer OTHER ==
[2018-07-09 18:09] VITALS: TEMP 98.2; BMI 28.5
--- NOTE | 2018-07-09 18:48 | PDOC ---
History of Present Illness - General Chief Complaint: Pain, Acute Stated Complaint: SENT BY PCP Time Seen by Provider: 07/09/18 18:48 - History of Present Illness Initial Comments: 07/09/18 18:48 Ms. Rodriguez is an 83 yo female w/ pmh of HTN, kidney disease, and hypothyroidism who presents for evaluation from urgent care. Patient had initially presented to urgent care for intermittent headache she described as a stabbing sensation that had been bothering her. She is unable to describe how long it has been going on for. Patient had a head CT which revealed: 1. No acute intracranial abnormality 2. Partial opacification of the medial aspect of the mastoid air cells bilaterally suggesting mild mastoiditis 3. Atherosclerosis and patchy small vessel ischemic disease bilaterally Patient denies any headache at this time. Presents for further evaluation of possible mastoiditis. The patient denies chest pain, shortness of breath, and dizziness. Denies fever , chills, nausea, vomit, diarrhea and constipation. Denies dysuria, frequency, urgency and hematuria. Allergies: NKDA PCP: Nessa Alcocer Past History - Past Medical History Allergies/Adverse Reactions: Allergies Allergy/AdvReac Type Severity Reaction Status Date / Time No Known Allergies Allergy Verified 07/09/18 18:04 Home Medications: Ambulatory Orders Cholecalciferol (Vitamin D3) [Vitamin D3] 2,000 unit PO DAILY 07/09/18 Gabapentin 300 mg PO BID 07/09/18 Gabapentin [Neurontin -] 100 mg PO BID 07/09/18 Levothyroxine [Synthroid -] 100 mcg PO DAILY 07/09/18 Losartan Potassium 50 mg PO DAILY 07/09/18 Anemia: No Asthma: No Cancer: No Cardiac Disorders: No CVA: No COPD: No CHF: No DVT: No Dementia: No Diabetes: No GI Disorders: No Disorders: Yes (KIDNEY DISEASE) HTN: Yes Hypercholesterolemia: Yes Liver Disease: No Seizures: No Thyroid Disease: Yes - Surgical History Abdominal Surgery: No Appendectomy: No Cardiac Surgery: No Cholecystectomy: No Lung Surgery: No Neurologic Surgery: No Orthopedic Surgery: Yes (BILAT ROTATOR SX; (R) WRIST SX) - Immunization History Immunization Up to Date: Yes - Suicide/Smoking/Psychosocial Hx Smoking History: Never smoked Have you smoked in the past 12 months: No Hx Alcohol Use: No Drug/Substance Use Hx: No Substance Use Type: Alcohol Hx Substance Use Treatment: No Review of Systems - Review of Systems Comments:: 07/09/18 19:11 GENERAL/CONSTITUTIONAL: No fever or chills. No weakness. HEAD, EYES, EARS, NOSE AND THROAT: No change in vision. No ear pain or discharge. No sore throat. CARDIOVASCULAR: No chest pain or shortness of breath RESPIRATORY: No cough, wheezing, or hemoptysis. GASTROINTESTINAL: No nausea, vomiting, diarrhea or constipation. GENITOURINARY: No dysuria, frequency, or change in urination. MUSCULOSKELETAL: No joint or muscle swelling or pain. No neck or back pain. SKIN: No rash NEUROLOGIC: +Headache as described. No vertigo, loss of consciousness, or change in strength/sensation. ENDOCRINE: No increased thirst. No abnormal weight change HEMATOLOGIC/LYMPHATIC: No anemia, easy bleeding, or history of blood clots. ALLERGIC/IMMUNOLOGIC: No hives or skin allergy. *Physical Exam - Vital Signs Last Vital Signs Temp Pulse Resp BP Pulse Ox 98.2 F 57 L 16 165/68 100 07/09/18 18:04 07/09/18 18:04 07/09/18 18:04 07/09/18 18:04 07/09/18 18:04 - Physical Exam Comments: 07/09/18 19:12 GENERAL: Awake, alert, and fully oriented, in no acute distress HEAD: No signs of trauma, normocephalic, atraumatic EYES: PERRLA, EOMI, sclera anicteric, conjunctiva clear ENT: Auricles normal inspection, hearing grossly normal, nares patent, oropharynx clear without exudates. Moist mucosa NECK: Normal ROM, supple, no lymphadenopathy, JVD, or masses LUNGS: No distress, speaks full sentences, clear to auscultation bilaterally HEART: Regular rate and rhythm, normal S1 and S2, no murmurs, rubs or gallops, peripheral pulses normal and equal bilaterally. ABDOMEN: Soft, nontender, normoactive bowel sounds. No guarding, no rebound. No masses EXTREMITIES: Normal inspection, Normal range of motion, no edema. No clubbing or cyanosis. NEUROLOGICAL: Cranial nerves II through XII grossly intact. Normal speech, normal gait, no focal sensorimotor deficits SKIN: Warm, Dry, normal turgor, no rashes or lesions noted. Moderate Sedation - Procedure Monitoring Vital Signs: Procedure Monitoring Vital Signs Temperature 98.2 F 07/09/18 18:04 Pulse Rate 57 L 07/09/18 18:04 Respiratory Rate 16 07/09/18 18:04 Blood Pressure 165/68 07/09/18 18:04 O2 Sat by Pulse Oximetry (%) 100 07/09/18 18:04 ED Treatment Course - LABORATORY CBC & Chemistry Diagram: 07/09/18 19:30 07/09/18 19:30 Medical Decision Making - Medical Decision Making 07/09/18 23:06 Ms. Rodriguez is an 83 yo female w/ pmh as described who presents for evaluation of CT relating concern for bilateral mastoiditis. Patient evaluated with labs as below w/ no concerning findings. Patient also discussed with [facility] ENT specialist Dr. Prasad who recommended repeat imaging given patient's well appearance, comforting labs, and lack of coinciding physical exam symptoms. Temporal CT for r/o mastoiditis revealed: No evidence of left or right mastoiditis. Mild bilateral frontal ethmoid and maxillary sinusitis. Calcified arteriosclerosis of the cavernous portions of the internal carotid arteries bilaterally. Limited evaluation of the brain parenchyma. If patient has a clinical indication further evaluation and workup may be needed. Patient safe for discharge home with outpatient ENT follow-up. Results discussed with patient who will follow-up with ENT for further evaluation. Follow-up information for Dr. Prasad provided. Laboratory Results - last 24 hr 07/09/18 07/09/18 19:30 19:30 WBC 3.8 L RBC 3.88 Hgb 11.6 Hct 34.4 MCV 88.8 MCH 29.8 MCHC 33.6 RDW 14.7 Plt Count 238 MPV 8.5 Absolute Neuts (auto) 1.4 L Neutrophils % 37.6 L Lymphocytes % 45.5 H Monocytes % 10.7 H Eosinophils % 4.2 Basophils % 2.0 Nucleated RBC % 0 Sodium 139 Potassium 4.6 Chloride 106 Carbon Dioxide 26 Anion Gap 7 L BUN 22 H Creatinine 1.2 Creat Clearance w eGFR 42.80 Random Glucose 80 Calcium 9.0 Total Bilirubin 0.2 AST 18 ALT 13 Alkaline Phosphatase 52 Total Protein 7.0 Albumin 3.4 *DC/Admit/Observation/Transfer Diagnosis at time of Disposition: Headache Qualifiers: Headache type: unspecified Headache chronicity pattern: unspecified pattern Intractability: not intractable Qualified Code(s): R51 - Headache - Discharge Dispostion Disposition: HOME - Referrals Referrals: Nessa Waters [Primary Care Provider] - - Patient Instructions Printed Discharge Instructions: DI for Sinusitis Additional Instructions: You were evaluated today in the ER as requested by Urgent Care. No concerning findings were found on laboratory evaluation or repeat CT scan and we believe you are safe for discharge and may follow-up outpatient with ENT specialist next week. Please call for appointment with Dr. Prasad of [facility] at [phone]. Return to ER if any fever, increase in pain, or other concerning symptoms. - Post Discharge Activity
[2018-07-09] MEDS ORDERED: ACETAMINOPHEN 1000 MG/100 ML VIAL (NON FORMULARY) IVPB ONE (19:33)
[2018-07-09] MEDS ORDERED: ACETAMINOPHEN INJECTION 100 ML IVPB ONE (19:49)
[2018-07-09 19:56] LABS: EOS % 4.2 % (0-4.5); HEMATOCRIT 34.4 % (32.4-45.2); HEMOGLOBIN 11.6 GM/dL (10.7-15.3); LYMPH % 45.5 % (8-40); MCH 29.8 pg (25.7-33.7); MCHC 33.6 g/dl (32.0-36.0); MEAN CELL VOLUME 88.8 fl (80-96); MEAN PLT VOLUME 8.5 fl (7.5-11.1); MONO % 10.7 % (3.8-10.2); NEUT % 37.6 % (42.8-82.8); PLATELET COUNT 238 K/MM3 (134-434); RBC 3.88 M/mm3 (3.60-5.2); RDW 14.7 % (11.6-15.6); WHITE BLOOD COUNT 3.8 K/mm3 (4.0-10.0)
--- NOTE | 2018-07-09 20:02 | PDOC ---
Attending Attestation - Resident Resident Name: Colten Teran - ED Attending Attestation I have performed the following: I have examined & evaluated the patient, The case was reviewed & discussed with the resident, I agree w/resident's findings & plan, Exceptions are as noted - HPI HPI: 07/09/18 19:57 The patient is an 83-year-old female with a past medical history significant for HTN, kidney disease, and hypothyroidism presents to the emergency department from urgent care for evaluation for possible mastoiditis. Pt reports that she has had intermittent headaches and bilateral ear pain x 1 week. Denies F/C. Denies hearing change. Pt went to [facility] where she had a CT that showed possible bilateral mastoiditis. Pt was referred here for further eval. - Physicial Exam PE: 07/09/18 20:01 "GENERAL: Awake, alert, and fully oriented, in no acute distress. HEAD: No signs of trauma EYES: PERRLA, EOMI, sclera anicteric, conjunctiva clear ENT: Auricles normal inspection, hearing grossly normal, nares patent, oropharynx clear without exudates. Moist mucosa NECK: Nontender, no stepoffs, Normal ROM, supple, no lymphadenopathy, JVD, or masses LUNGS: Breath sounds equal, clear to auscultation bilaterally. No wheezes, and no crackles HEART: Regular rate and rhythm, normal S1 and S2, no murmurs, rubs or gallops ABDOMEN: Soft, nontender, normoactive bowel sounds. No guarding, no rebound. No masses EXTREMITIES: Normal range of motion, no edema. No clubbing or cyanosis. No cords, erythema, or tenderness NEUROLOGICAL: Cranial nerves II through XII intact. 5/5 strength and sensation in all extremities, Normal speech, normal gait, normal cerebellar function SKIN: Warm, Dry, normal turgor, no rashes or lesions noted. - Medical Decision Making 07/09/18 20:02 83 F here for evaluation of possible mastoiditis. No clinical signs of mastoiditis on exam (no mastoid tenderness, normal TMs, no fevers). - Labs - ENT consult (unavailable here, will consult ENT at [facility]) 07/09/18 23:[address] Prasad, ENT auto service station attendant at [facility], who reviewed CT report. She states that it is highly unlikely these findings represent acute mastoiditis, as there is no evidence of bony erosion. Pt also with no infectious symptoms, no clinical findings consistent with mastoiditis. Recommended obtaining CT temporal bones with thin cuts, as CT head is not ideal study to r/o mastoiditis. CT temporal bones reveals NO evidence of right or left mastoiditis Pt informed of results, will f/u with ENT as outpt. Pt is well appearing, with normal vitals. Clinically stable for DC at this time. I discussed the physical exam findings, ancillary test results and final diagnoses with the patient. I answered all of the patient's questions. The patient was satisfied with the care received and felt comfortable with the discharge plan and treatment plan. The patient agrees to follow up with the primary care physician within 24-72 hours.
[2018-07-09 20:15] LABS: ALBUMIN 3.4 g/dl (3.4-5.0); ALK PHOS 52 U/L (45-117); ANION GAP 7 MMOL/L (8-16); BILIRUBIN,TOTAL 0.2 mg/dL (0.2-1); BLOOD UREA NITROGEN 22 mg/dL (7-18); CHLORIDE 106 mmol/L (98-107); CO2 26 mmol/L (21-32); CREATININE 1.2 mg/dL (0.55-1.3); GLUCOSE,RANDOM 80 mg/dL (74-106); POTASSIUM 4.6 mmol/L (3.5-5.1); SGOT/AST 18 U/L (15-37); SGPT/ALT 13 U/L (13-61); SODIUM 139 mmol/L (136-145)
[2018-07-10 00:01] VITALS: BP 170/76; PULSE 55
== END 2018-07-09 23:59 | disposition home or self-care (01) ==
LOC: JER 17:52
PROC: 3E033NZ Introduction of Analgesics, Hypnotics, Sedatives into Peripheral Vein, Percutaneous Approach (ICD-10-PCS; principal; 2018-07-09)
DX: R51 Headache (principal); J32.2 Chronic ethmoidal sinusitis; J32.0 Chronic maxillary sinusitis; I12.9 Hypertensive chronic kidney disease with stage 1 through stage 4 chronic kidney disease, or unspecified chronic kidney disease; N18.9 Chronic kidney disease, unspecified; E03.9 Hypothyroidism, unspecified; E78.00 Pure hypercholesterolemia, unspecified
CPT/HCPCS: 36415; 70480-TC; 80053; 85025; 87040; 96374; 99281-25; J0131